=== PATIENT | male | born 1950 | race Caucasian/White ===

== ENCOUNTER → 2021-08-21 12:29 | Outpatient (CLI) | payer MEDICARE, SELFPAY ==
[2021-08-21 14:37] LABS: Absolute Lymphocyte Count 2.09 X10^3/uL (0.83-4.51); Absolute Neutrophil Count 5.7 X10^3/uL (2.0-7.7); Basophil# 0.13 X10^3/uL; Basophil% 1.5 % (0-1); Eosinophil# 0.15 X10^3/uL; Eosinophils% 1.7 % (0-5); Hemoglobin 15.2 g/dL (13.0-16.5); Lymphocyte # 2.09 X10^3/ul (0.83-4.51); Lymphocyte % 23.6 % (19-41); Mean Corpuscular Hgb 28.5 pg (27.0-32.0); Mean Corpuscular Volume 86.3 fL (80-94); Mean Platelet Vol. 11.1 fl (6.2-12.0); Monocyte# 0.79 X10^3/uL; Monocyte% 8.9 % (0-10); NRBC Flagged by Analyzer 0 % (0-5); Neutrophil # 5.66 X10^3/uL (2.7-7.7); Neutrophil % 63.7 % (47-70); Platelet Count 217 K/mm3 (150-450); RBC Distribution Width CV 13.6 % (11.6-14.6); Red Blood Count 5.33 M/mm3 (4.6-6.2); White Blood Count 8.9 K/mm3 (4.4-11.0)
[2021-08-21 14:50] LABS: Vitamin D,25 Hydroxy 36.2 ng/mL
[2021-08-21 14:55] LABS: ALB/GLOB Ratio 0.8 RATIO (0.9-2.4); AST(SGOT) 18 U/L (15-37); Alanine Aminotransfer ALT/SGPT 20 U/L (16-61); Albumin, Serum 3.5 g/dL (3.2-5.0); Alkaline Phosphatase 81 U/L (45-117); Anion Gap 5 (5-15); BUN 16 mg/dL (7-18); BUN/Creat Ratio 20.5 RATIO (10-20); Calcium,Total 9.3 mg/dL (8.5-10.1); Chloride 108 mmol/L (98-107); Cholesterol 244 mg/dL (200); Creatinine, Serum 0.78 mg/dL (0.70-1.30); EST Glomerular Filtration Rate 104 mL/min (>60); Est Glom Filt Rate - Afr Amer 125 mL/min (>60); Globulin 4.2 g/dL (2.2-4.2); Glucose 93 mg/dL (74-106); High Density Lipoprotein 44 mg/dL; PSA,Total - Annual Screen 5.18 ng/mL (0.00-4.00); Potassium 4.2 mmol/L (3.5-5.1); Protein, Total 7.7 g/dL (6.4-8.2); Sodium Level 139 mmol/L (136-145); Thyroid Stim Hormone (TSH) 1.61 uIU/mL (0.358-3.74); Triglycerides 152 mg/dL; Very Low Density Lipoprotein 30 mg/dL (5-40)
== END ==
PROVIDERS: PCP Internal Medicine; Referring Provider Internal Medicine; Visit Provider Internal Medicine
DX: E78.5 Hyperlipidemia, unspecified (principal); E55.9 Vitamin D deficiency, unspecified; E66.3 Overweight; Z12.5 Encounter for screening for malignant neoplasm of prostate
CPT/HCPCS: 36415; 80053; 80061; 82306; 84153; 84443; 85025; G0103

== ENCOUNTER 2022-03-28 12:51 | Observation (INO) | payer MEDICARE, SELFPAY ==
[2022-03-28] VITALS (16 sets, daily range): BP systolic 136–163; BP diastolic 62–101; PULSE 65–86; RESP 14–18; TEMP 36.1–36.7; O2SAT 87–94; BMI 26.5
--- NOTE | 2022-03-28 | IMM_PTH ---
PATIENT: MODESTA ARGUETA LOC: MS3 U#:[id number] AGE/SX: 71/M ROOM: [facility] [place] RE03/28/[address]: Dr. Jorge Alberto Fontana MD : 1950 BED: 1 DIS: 03/29/2022 SPEC #: [id number] RECD: 03/30/22 15:07 STATUS: CROW REDequan #: [id number] MAURY: 03/28/22 00:[address]: Jorge Alberto Fontana DEPT: IMMUNOHISTOCHEMISTRY RECD BY: Jolene Gonzalez ENTERED: 03/30/22 15:09 SP TYPE: IMMUNO OTHR DR: Dr. Lula Hammond MD Tissues: Prostate, NOS Procedures: 34BE12 (add) P40 (add) 34BE12 (initial) PHYSICIAN & INSTITUTION [place] [id number] SPECIMEN INFORMATION: Tissue Source: Prostate tissue Clinical Info: BPH with lower urinary tract symptoms Specimen Number: [id number], #1 & 7 CPT code: 42320, 61202 x3 METHODOLOGY: Deparaffinized sections of prefer/formalin-fixed tissue or PAP/DQ stained slides are incubated with monoclonal/polyclonal antibodies/oligonucleotide probes. Localization is made via biotin free immunoperoxidase method. Appropriate controls are performed and reacted as expected. Results on target cell population are indicated in the following table: RESULTS: ANTIBODY / CLONE RESULT Block 1 P40 (BC28) negative 34BE12 (34BE12) negative Block 7 P40 (BC28) negative 34BE12 (34BE12) negative These tests were developed and their performance characteristics determined by [facility]. They may not have been cleared or approved by the U.S. Food and Drug Administration. The FDA has determined that such clearance or approval is not necessary. The above immunohistochemical/dualISH markers are ordered and reviewed by the Pathologist. INTERPRETATION: Prostate, transurethral resection: Adenocarcinoma. CARMEN:eddy 04/02/2022
[2022-03-28] MEDS: Lactated Ringers 1,000 ML 15 ML IV (12:00)
--- NOTE | 2022-03-28 12:05 | EKG12_ITS ---
Test Reason : PRE OP Blood Pressure : / mmHG Vent. Rate : 063 BPM Atrial Rate : 063 BPM P-R Int : 150 ms QRS Dur : 084 ms QT Int : 388 ms P-R-T Axes : 060 000 010 degrees QTc Int : 397 ms Normal sinus rhythm Normal ECG No previous ECGs available Confirmed by JOSEPHINE LANDIN, TARUN ([id number]), photo editor PRETTY GAONA ([id number]) on 04/02/2022 10:16:48 A M Referred By: Jorge Alberto Fontana Confirmed By:RONNIE BURTON MD
[2022-03-28 12:39] LABS: Hematocrit 43.9 % (40-54); Mean Corp Hgb Conc 34.2 g/dL (32-36); Mean Corpuscular Volume 84.9 fL (80-94); Mean Platelet Vol. 9.9 fl (6.2-12.0); Platelet Count 233 K/mm3 (150-450); RBC Distribution Width CV 13.2 % (11.6-14.6); RBC Distribution Width SD 41.1 fl (35.1-43.9); Red Blood Count 5.17 M/mm3 (4.6-6.2)
--- NOTE | 2022-03-28 12:53 | HP.PCM_ITS ---
HPI - General HPI Narrative MODESTA ARGUETA, is a 71 M who presents for a TURP [facility] Medical History Ambulates with cane Back pain Fractured pelvis History of edema History of GI bleed History of pain when walking History of pneumonia Prostate disease Smoker Wears glasses Home Medications cholecalciferol (vitamin D3) [Vitamin D3] 125 mcg PO DAILY 03/22/22 [History Last Taken Unknown] red yeast rice 1,200 mg PO DAILY 03/22/22 [History Last Taken Unknown] ciprofloxacin HCl [Cipro] 500 mg PO BID #10 tab 03/28/22 [Rx Last Taken Unknown] Allergy/AdvReac Type Severity Reaction Status Date / Time No Known Allergies Allergy Verified 03/28/22 12:29 Family History Mother Diabetes Father Alzheimer disease Surgical History History of ankle surgery Hx of detached retina repair Hx of inguinal hernia repair Social History Smoking Status: Current every day smoker tobacco type: cigarettes alcohol intake: never substance use type: does not use what type of physical activity do you participate in: other details: gardening Vital Signs Vital Signs Vital Signs: 03/28/22 12:25 Temperature 97.7 F L Temperature Source Temporal Pulse Rate 74 Respiratory Rate 17 Respiratory Pattern Normal Blood Pressure 148/96 H Blood Pressure Mean 113 Blood Pressure Source Monitor Blood Pressure Position Semi-Fowlers Blood Pressure Location Right Arm Pulse Ox 93 Oxygen Delivery Method Room Air Weight Weight: 79.1 kg Body Mass Index (BMI) 26.5 Results Lab / Micro Data Result Diagrams: 03/28/22 12:23 Labs: Laboratory Results - last 24 hr 03/28/22 12:23: WBC 9.0, RBC 5.17, Hgb 15.0, Hct 43.9, MCV 84.9, MCH 29.0, MCHC 34.2, RDW Std Deviation 41.1, RDW Coeff of Michael 13.2, Plt Count 233, MPV 9.9
--- NOTE | 2022-03-28 12:54 | PCM.DC ---
Discharge Instructions Diet Discharge Diet: No restrictions Activity Discharge Activity: Return to Normal Activity and May Not Drive (while taking narcotic pain medications.) Dressing / Incision Call your doctor if you observe: Fever of 101 or Higher Follow Up Care Please Follow Up With: Jorge Alberto Fontana MD When: Call [phone] for an appointment Test Results: Test results from this visit will be discussed in further detail at your follow-up appointment, if applicable. Discharge Plan Admission Primary Reason for Your Visit: TURP Attending Provider: Jorge Alberto Fontana Primary Care Provider: Lula Hammond Instructions Patient Instructions: JUDI Home Recovery Discharge Orders/Prescriptions Prescriptions: New ciprofloxacin HCl [Cipro] 500 mg tablet 500 mg PO BID Qty: 10 RF: 0 Continued red yeast rice 600 mg Capsule 1,200 mg PO DAILY RF: 0 cholecalciferol (vitamin D3) [Vitamin D3] 125 mcg (5,000 unit) Tablet 125 mcg PO DAILY RF: 0 Discontinued tamsulosin 0.4 mg capsule 0.4 mg PO QHS RF: 0 dutasteride 0.5 mg capsule 0.5 mg PO DAILY RF: 0 Referrals / Follow Up: Jorge Alberto Fontana MD [STAFF PHYSICIAN] - Lula Hammond MD [Primary Care Provider] - Disposition Disposition (needs filled in before D/C Order can be placed): Home, Self Care
--- NOTE | 2022-03-28 12:54 | PCM.OPRPT ---
Report of Operation Date of Procedure: 03/28/22 Pre-Operative Diagnosis: bph with obstruction, atonic bladder Post-Operative Diagnosis: same Surgery/Procedure Performed:: transurethral resection of the prostate Description of Surgical Findings:: In the preoperative setting I discussed with the patient how the surgery would be done with expect afterwards. We discussed how a prostate resection is done and we discussed the risk of the surgery including, bleeding, infection, retrograde ejaculation, changes with ejaculation or intercourse,. We discussed the possibility that the resection of the prostate may not alleviate his urinary symptoms. We discussed the small risk of developing scar tissue along the urethral channel and strictures. We also discussed the chance of the prostate could grow back and he may need further surgery or treatment in the future for prostate problems. Patient was taken back to the operating room, timeout procedure was performed, he was identified and marked and placed on the operating room table. He underwent general anesthesia. He was placed in dorsolithotomy position. Penis and testicles were prepped and draped in usual sterile fashion. Went into the bladder using the visual obturator with a resectoscope. Once inside the bladder identified the right and left ureteral orifice. I then identified the prostate and the anatomy of the prostate. I marked out the area of the sphincter and the verumontanum was identified. I then proceeded with the prostate resection first resected the median lobe. And then resected the right lobe of the prostate. Then to resect the left lobe of the prostate. I then resected the apical tissue of the prostate. This was a complete resection of all obstructive tissue to improve voiding and relieve obstruction. I then made sure that there was no injury to the sphincter or the verumontanum was still intact. At the end of the resection all the chips were Ellik out of the bladder. I then identified the left and right ureteral orifice and these were confirmed to be in good position and effluxing and not injured. The resectoscope was removed, a 22 Swedish catheter was placed into the bladder on continuous irrigation. And the urine was fairly light pink color and draining normally. He was taken back to the PACU in good condition. CPT 46512 Surgeon: seng Type of Anesthesia: General Drains: 22fr [address] way fontenot Admit VTE Documentation VTE Present on Admission: No VTE Mechan Device Prophylaxis: SCD's VTE Pharm Prophylaxis ordered?: No
[2022-03-28] MEDS: Cefazolin 2 GM in 0.9% Normal Saline 100 ML IV (13:22)
--- NOTE | 2022-03-28 13:40 | PROS_PTH ---
PATIENT: MODESTA ARGUETA LOC: MS3 U#:[id number] AGE/SX: 71/M ROOM: [facility] [place] RE03/28/[address]: Dr. Jorge Alberto Fontana MD : 1950 BED: 1 DIS: 03/29/2022 SPEC #: [id number] RECD: 03/28/22 14:45 STATUS: CROW [place]OCK #: [id number] MAURY: 03/28/22 13:[address]: Jorge Alberto Fontana DEPT: SURGICAL PATHOLOGY RECD BY: Yue Duggan ENTERED: 03/29/22 07:42 SP TYPE: TURP OTHR DR: Dr. Lula Hammond MD Tissues: Prostate, NOS Procedures: Surgery Specimen Level IV HEADER OPERATION: Cysto, TUR prostate, Olympus PRE-OP DIAGNOSIS: BPH with lower urinary tract symptoms, feeling of incomplete bladder emptying TISSUE SUBMITTED: Prostate tissue MICROSCOPIC DIAGNOSIS Prostate tissue, transurethral resection: Prostatic adenocarcinoma. See cancer summary in the comment section. SJ:rg 04/01/2022 COMMENT PROSTATE CANCER (TUR) SUMMARY: Procedure - transurethral resection of prostate (TURP) Histologic type ? acinar adenocarcinoma Histologic grade ([place] Pattern) ? grade group 1 ([place] score 3+3=6) Tumor Quantitation (TUR specimens): Proportion (%) of prostatic tissue involved by tumor - <5% Periprostatic fat invasion ? not applicable Seminal vesicle invasion - not applicable Lymphvascular invasion ? not identified Perineural invasion ? not identified Additional pathologic findings ? benign prostatic hyperplasia, glandular and stromal types. Chronic inflammation and basal cell hyperplasia. Treatment effect ? no known presurgical therapy. The above summary is in compliance with [employer] [place] [employer] (CAP) Cancer Protocols Checklist and [place] Joint Committee on Cancer (AJCC), Staging Manual, 8th Ed. Immunohistochemistry ([id number]) supports the above diagnosis. Case has been reviewed in consultation with Dr. Layton who concurs with the above diagnosis. IDC:AM MICROSCOPIC DESCRIPTION Slides are reviewed. GROSS DESCRIPTION Received is one container labeled with the patient's name and designated prostate tissue. The specimen consists of multiple irregular fragments of pink-gilbert, rubbery, soft tissue that in aggregate weigh 11.4 gm and measure in aggregate 6 x 5 x 0.6 cm. Senior Telecommunications Specialist portions are submitted in ten cassettes. / AM:eddy 03/29/2022 Multiple fragments of black stones are also noted. The rest of the specimen is submitted in three more cassettes, 11-13. / SJ:eddy 03/30/2022 TC:0 CPT: 58604
--- NOTE | 2022-03-28 15:30 | EKG12_ITS ---
Test Reason : POST OP Blood Pressure : / mmHG Vent. Rate : 064 BPM Atrial Rate : 064 BPM P-R Int : 156 ms QRS Dur : 088 ms QT Int : 424 ms P-R-T Axes : 051 -07 -14 degrees QTc Int : 437 ms Normal sinus rhythm Normal ECG When compared with ECG of 28-MAR-2022 12:05, MANUAL COMPARISON REQUIRED, DATA IS UNCONFIRMED Confirmed by JOSEPHINE LANDIN, TARUN ([id number]), magazine editor PRETTY GAONA ([id number]) on 04/02/2022 10:12:58 A M Referred By: Jorge Alberto Fontana Confirmed By:RONNIE BURTON MD
--- NOTE | 2022-03-28 15:33 | SUR.PHASEI ---
WOKE PT UP TO ASSES PAIN, PT ASKS WHY HIS CHEST HURTS. ORDER PLACED FOR EKG
[2022-03-28 16:28] LABS: Troponin-I HS < 3 pg/mL (3.0-78.0)
[2022-03-28] MEDS: Ibuprofen 600 MG Tablet PO (21:54)
[2022-03-29 02:08] VITALS: BP 141/90; PULSE 75; RESP 16; TEMP 36.5; O2SAT 94
[2022-03-29] MEDS: Acetaminophen 500 MG Tablet PO (05:46)
[2022-03-29 05:59] VITALS: BP 146/97; PULSE 76; RESP 16; TEMP 36.6; O2SAT 94
[2022-03-29 07:45] VITALS: O2SAT 94
--- NOTE | 2022-03-29 07:58 | PCM.PN.GU ---
Subjective Subjective urine clear d/c fontenot d/c home Objective Data Objective Data Vital Signs: Vital Signs Temp Pulse Resp BP Pulse Ox 98 F 76 16 146/97 H 94 03/29/22 05:59 03/29/22 05:59 03/29/22 05:59 03/29/22 05:59 03/29/22 07:45 Oxygen Flow Rate (L/min) 2 Oxygen Delivery Method Nasal Cannula Weight: 79.1 kg Body Mass Index (BMI) 26.5 Intake & Output: Intake and Output for Last 24 Hours 03/27/22 03/28/22 03/29/22 23:59 23:59 23:59 Intake Total 1410 / 1410 400 / 400 Output Total 1500 / 1500 Balance -90 / -90 400 / 400 Lab / Micro Data Result Diagrams: 03/28/22 12:23 Labs: Laboratory Results - last 24 hr 03/28/22 12:23: WBC 9.0, RBC 5.17, Hgb 15.0, Hct 43.9, MCV 84.9, MCH 29.0, MCHC 34.2, RDW Std Deviation 41.1, RDW Coeff of Michael 13.2, Plt Count 233, MPV 9.9 03/28/22 16:00: Troponin I High Sens < 3 L
[2022-03-29 09:00] VITALS: BP 155/89; PULSE 68; RESP 18; TEMP 36.6; O2SAT 93
[2022-03-29] MEDS: Ibuprofen 600 MG Tablet PO (09:12)
--- NOTE | 2022-03-29 12:08 | CHAPLAIN ---
Type of Pastoral Visit _x__ Initial Visit ___ Follow-up Visit ___ On-call Visit ___ General Patient Visit ___ Spiritual Assessment ___ Family Conference ___ Bereavement ___ Rapid Response ___ Code Blue ___ Other (describe below) Pastoral Care Referral From _x__ Patient ___ Family ___ Nurse ___ Physician ___ Motor Coach Chauffeur ___ Chaplain ___ Other (describe below) Sacrament/Intervention _x__ Active listening ___ Anointing ___ Yazidism ___ Bereavement ___ Communion ___ Helen exploration ___ _x__ Life review _x__ Prayer ___ Reconciliation ___ Sacrament of Sick _x__ Supportive presence ___ Wedding ___ Other (describe below) Pastoral Comments patient is welcoming of visit and spiritual care support; pt belongs to a quaker but unable to attend recently years due to COVID and 's poor health; pt is concerned for and her future needs; pt talkative; pt expresses desire for prayer support
[2022-03-29 14:15] VITALS: BP 155/89; PULSE 68; RESP 18; TEMP 36.6; O2SAT 93
== END 2022-03-29 14:45 | disposition home or self-care (01) ==
LOC: SDC 14:56 → MS3 18:14
PROVIDERS: Anesthesiology; Admitting Provider Urology; PCP Internal Medicine; Referring Provider Urology; Visit Provider Urology
PROC: (CPT 52601; principal; 2022-03-28 13:30)
DX: N40.1 Benign prostatic hyperplasia with lower urinary tract symptoms (principal); C61 Malignant neoplasm of prostate; R33.8 Other retention of urine; Z79.899 Other long term (current) drug therapy; F17.210 Nicotine dependence, cigarettes, uncomplicated; N31.2 Flaccid neuropathic bladder, not elsewhere classified
CPT/HCPCS: 52601; 84484; 85027; 88305; 88341; 88342; 93005; 99218; J7120; G0378; J2405

== ENCOUNTER → 2022-08-07 | Outpatient (CLI) | payer MEDICARE, SELFPAY ==
[2022-08-07 16:28] LABS: PSA,Total- Diagnostic 0.42 ng/mL (0.0-4.0)
== END | disposition home or self-care (01) ==
LOC: LAB 14:40
PROVIDERS: PCP Internal Medicine; Referring Provider Registered Nurse; Visit Provider Registered Nurse
DX: C61 Malignant neoplasm of prostate (principal)
CPT/HCPCS: 36415; 84153

== ENCOUNTER → 2023-02-11 | Outpatient (CLI) | payer MEDICARE, SELFPAY ==
[2023-02-11 16:56] LABS: PSA,Total- Diagnostic 0.75 ng/mL (0.0-4.0)
== END | disposition home or self-care (01) ==
LOC: LAB 15:10
PROVIDERS: PCP Internal Medicine; Referring Provider Urology; Visit Provider Urology
DX: C61 Malignant neoplasm of prostate (principal)
CPT/HCPCS: 36415; 84153

== ENCOUNTER → 2023-02-19 | Outpatient (CLI) | payer MEDICARE, SELFPAY ==
--- NOTE | 2023-02-19 14:25 | RAD_ITS ---
STUDY: X-RAY CHEST REASON FOR EXAM: Male, 72 years old. Chest pain/pressure TECHNIQUE: PA and lateral views of the chest. COMPARISON: None. FINDINGS: Lungs are expanded with chronic interstitial changes, no superimposed acute pulmonary process. There is no demonstrated pleural abnormality. Normal size heart. Normal mediastinum and theresa. Normal visualized pulmonary arteries. Normal visualized aortic arch and descending thoracic aorta. There are diffuse degenerative changes of the visualized thoracic spine. Normal visualized ribs, clavicles, and shoulders. There is no demonstrated abnormality of the visualized soft tissue structures of the upper abdomen. RAD/Chest PA and Lateral IMPRESSION: Chronic interstitial changes in both lung corona without a superimposed acute pulmonary process Electronically Signed: Ceferino Lockhart MD at 14:35 EDT ,
== END | disposition home or self-care (01) ==
LOC: RAD 14:17
PROVIDERS: PCP Internal Medicine; Referring Provider Internal Medicine; Visit Provider Internal Medicine
DX: R06.89 Other abnormalities of breathing (principal)
CPT/HCPCS: 71046

== ENCOUNTER → 2023-03-06 | Outpatient (CLI) | payer MEDICARE, SELFPAY ==
--- NOTE | 2023-03-06 18:05 | STRESSREP_ITS ---
Stress Test Report Exercise myocardial perfusion stress test. 72-year-old man with a history of dyspnea on exertion Stress protocol: Resting EKG demonstrates sinus bradycardia with a rate of 55 bpm resting blood pressure is 160/90 mmHg. The patient exercised according to the regular Kaushik protocol for a total duration of 3 minutes and 31 seconds attaining a maximum heart rate of 118 bpm which was 80% of maximum predicted heart rate; the maximum workload was 5.8 metabolic equivalents. At rest there were no ST or T wave changes noted to suggest ischemia and at peak exercise upsloping ST changes only were noted which did not meet the criteria for ischemia. No clinical angina was noted the test was terminated due to the target heart rate being achieved /fatigue. The peak blood pressure was 210/94 mmHg. Rate-pressure product was 23,100. Myocardial perfusion protocol. 14.3 mCi of technetium 99m sestamibi was injected at rest. The patient exercised according to regular Kaushik protocol for total duration of 3 minutes and 31 seconds and at peak exercise 44.7 mCi of technetium 99m sestamibi was injected stress images were obtained stress and rest images were reconstructed in comparing the short axis vertical long and horizontal long axis. Gated images were also obtained. Perfusion SPECT analysis: Review of the stress images demonstrate normal uptake of tracer noted in all areas of the myocardium. The resting images similarly demonstrate normal uptake of tracer noted in all areas of the myocardium. No areas of reversibility are noted to suggest ischemia no previous infarct was noted. Gated SPECT analysis: The gated ejection fraction is 66%. Conclusion: Normal exercise myocardial perfusion stress test at a low workload Preserved ejection fraction.
== END | disposition home or self-care (01) ==
LOC: CVS 07:21
PROVIDERS: PCP Internal Medicine; Referring Provider Internal Medicine; Visit Provider Internal Medicine
DX: R06.09 Other forms of dyspnea (principal)
CPT/HCPCS: 78452; 93017; A9500; A4216

== ENCOUNTER 2023-09-01 12:53 | Emergency (ER) | payer MEDICARE, SELFPAY ==
[2023-09-01 12:53] VITALS: BP 210/130; PULSE 115; RESP 20; TEMP 36.4; O2SAT 93; BMI 26.9
--- NOTE | 2023-09-01 13:03 | CT_ITS ---
EXAM: CT HEAD WITHOUT INTRAVENOUS CONTRAST CLINICAL INDICATION: headache TECHNIQUE: Multiple axial images were obtained of the head without intravenous contrast. This CT exam was performed using one or more of the following dose reduction techniques: automated exposure control, adjustment of the mA and/or kV according to patient size, and/or use of iterative reconstruction technique. COMPARISON: No relevant prior studies available. FINDINGS: BRAIN AND EXTRA-AXIAL SPACES: 4.5 mm chronic-appearing right basal ganglion lacunar infarct. Areas of diminished white matter density noted within both cerebral hemispheres suggestive of chronic microvascular change. BONES/JOINTS: No suspicious lytic or blastic abnormality. SINUSES: No acute sinusitis. MASTOID AIR CELLS: Normal. Clear. CT/Brain/Head without Contrast IMPRESSION: 1. No acute intracranial abnormality. 2. Senescent changes. Electronically Signed: Adalid Lowe MD at 13:57 EDT ,
--- NOTE | 2023-09-01 13:03 | RAD_ITS ---
EXAM: XR CHEST, 1 VIEW CLINICAL INDICATION: cough -- general body aches, nausea, vomiting, migraine TECHNIQUE: Frontal view of the chest. COMPARISON: XR Chest dated 02/19/2023 FINDINGS: LUNGS AND PLEURAL SPACES: Hyperlucency within the right upper lobe again noted suggestive of underlying emphysema. HEART: Normal heart size. MEDIASTINUM: No mediastinal or hilar mass. BONES/JOINTS: No acute abnormality. RAD/Chest 1 View (Portable) IMPRESSION: No acute cardiopulmonary abnormality. COPD. Electronically Signed: Adalid Lowe MD at 13:31 EDT ,
--- NOTE | 2023-09-01 13:06 | EX.ED.DYSGE1 ---
HPI History of Present Illness Chief Complaint: Weakness Informant: patient and spouse/S.O. Onset/Context/Timing Onset: Yesterday Narrative Narrative: Patient presents with generalized body aches and headache since last evening. He states he difficulty sleeping because he cannot get comfortable. He had very mild if any cough. He does not know if he had a fever. He last took Tylenol about 11 hours ago. Patient's blood pressure and heart rate were noted to be significantly elevated in triage. He does not have a history of hypertension. Nursing staff notes that he was vomiting at the time his blood pressure was being checked. In the room at the time of my exam his blood pressure remains elevated at 186/134. [facility] Medical History Ambulates with cane Back pain Fractured pelvis History of edema History of GI bleed History of pain when walking History of pneumonia Prostate disease Smoker Wears glasses Home Medications cholecalciferol (vitamin D3) 125 mcg (5,000 unit) tablet (Vitamin D3) 125 mcg PO DAILY 03/22/22 [History Last Taken Unknown] red yeast rice 600 mg capsule 1,200 mg PO DAILY 03/22/22 [History Last Taken Unknown] Handicap placard #1 ea 02/18/23 [Rx Last Taken Unknown] nirmatrelvir 300 mg (150 mg x2)-ritonavir 100 mg tablet,dose pack (Paxlovid) See Rx Instructions PO .COMPLEX #30 tabs 09/01/23 [Rx Last Taken Unknown] Allergy/AdvReac Type Severity Reaction Status Date / Time No Known Allergies Allergy Verified 02/18/23 13:31 Family History Mother Diabetes Father Alzheimer disease Surgical History History of ankle surgery Hx of detached retina repair Hx of inguinal hernia repair Social History Smoking Status: Current every day smoker tobacco type: cigarettes alcohol intake: never substance use type: does not use what type of physical activity do you participate in: other details: gardening ROS ROS ED Constitutional Constitutional ED: Denies chills Eyes Eyes: Denies change in vision or discharge from eye(s) ENT ENT ED: Denies discharge from eye(s), rhinorrhea or sore throat Cardiovascular Cardiovascular: Denies chest pain or palpitations Respiratory/Chest Respiratory/Chest: Reports cough; Denies dyspnea Gastrointestinal Gastrointestinal: Reports nausea and vomiting; Denies diarrhea Genitourinary Genitourinary ED: Denies dysuria Musculoskeletal Musculoskeletal: Reports extremity pain and myalgias; Denies back pain Integumentary Denies Abrasions or rash Neurologic Neurologic: Reports headache(s) and weakness Psychiatric Psychiatric: Denies anxiety or depression Allergic/Immunologic Allergic/Immunologic ED: Denies lip swelling or urticaria EXAM Physical Exam Const Vital Signs: 09/01/23 12:53 09/01/23 13:15 09/01/23 13:16 Temperature 97.5 F L Temperature Source Temporal Pulse Rate 115 H 103 H Respiratory Rate 20 H 22 H Respiratory Pattern Tachypnea Blood Pressure 210/130 H 176/104 H Blood Pressure Mean 156 128 Pulse Ox 93 91 Oxygen Delivery Method Room Air 09/01/23 15:06 Temperature Temperature Source Pulse Rate 97 Respiratory Rate 22 H Respiratory Pattern Blood Pressure 169/105 H Blood Pressure Mean 126 Pulse Ox 91 Oxygen Delivery Method Room Air Positive well nourished and well developed General Appearance ED: well developed HEENT Reports normocephalic and head/scalp atraumatic Eyes PERRL and EOMs intact bilaterally Neck supple Chest Wall inspection of chest normal and palpation of chest normal Resp normal respiratory effort and clear to auscultation bilaterally Cardio regular rate and regular rhythm GI normal to inspection, nondistended, normoactive bowel sounds Palpation: soft Extremity normal to inspection Neuro oriented x3 and no sensory deficits noted Sensorium / Orientation: alert Motor Exam: strength 5/5 throughout Psych mental status grossly normal Skin no rashes or lesions noted MDM MDM MDM Narrative Medical decision making narrative: Patient placed on prenatal teacher. EKG obtained to evaluate for cardiac arrhythmia/ischemia. Chest x-ray obtained to evaluate for acute lung pathology, cardiac size, or mediastinal abnormality. Labwork obtained to evaluate for leukocytosis, anemia, and electrolyte derangement. CT scan of the head obtained given his headache and elevated blood pressure. Swab for COVID and influenza obtained. Patient given IV fluids and Zofran along with a small dose of morphine for pain control. If his blood pressure remains elevated once his pain is controlled we will initiate antihypertensives. History & Record Review Discussion w/independent historian: Patient and Significant other Lab Data Attestation: I reviewed the patient's lab results. Labs: Laboratory Results - last 24 hr 09/01/23 09/01/23 13:10 14:40 WBC 5.7 RBC 5.38 Hgb 14.8 Hct 45.7 MCV 84.9 MCH 27.5 MCHC 32.4 RDW Std Deviation 41.4 RDW Coeff of Michael 13.3 Plt Count 185 MPV 10.1 Immature Gran % (Auto) 0.300 Neut % (Auto) 79.5 H Lymph % (Auto) 5.4 L [place] % (Auto) 12.4 H Eos % (Auto) 0.7 Baso % (Auto) 1.7 H Absolute Neuts (auto) 4.5 Absolute Lymphs (auto) 0.31 L Nucleated RBC % 0 Sodium 136 Potassium 3.6 Chloride 107 Carbon Dioxide 23.0 Anion Gap 6 BUN 12 Creatinine 0.82 Estim Creat Clear Calc 75.30 Est GFR (MDRD) Af Amer 118 Est GFR (MDRD) Non-Af 98 BUN/Creatinine Ratio 14.7 Glucose 110 H Lactic Acid 0.9 Calcium 8.7 Total Bilirubin 0.50 Direct Bilirubin 0.17 AST 18 ALT 21 Alkaline Phosphatase 82 Total Protein 7.9 Albumin 3.7 Globulin 4.2 Urine Color Yellow Urine Clarity Clear Urine pH 7.0 Ur Specific [place] 1.010 Urine Protein 15 H Urine Glucose (UA) Normal Urine Ketones Negative Urine Occult Blood 150 H Urine Nitrite Negative Urine Bilirubin Negative Urine Urobilinogen Normal Ur Leukocyte Esterase Negative Urine RBC 0-5 SEEN Urine WBC 0 SEEN Ur Squamous Epith Cells 0 SEEN Urine Bacteria 0 SEEN Urine Mucus 0 SEEN Radiography Chest X-Ray - ED: 1 View, Read by ED Physician, Chronic Changes and No Infiltrates Diagnostic Testing: Clinical Impression(s) from Imaging Studies Brain CT 09/01/23 13:03 IMPRESSION: 1. No acute intracranial abnormality. 2. Senescent changes. Electronically Signed: Adalid Lowe MD at 13:57 EDT , Chest X-Ray 09/01/23 13:03 IMPRESSION: No acute cardiopulmonary abnormality. COPD. Electronically Signed: Adalid Lowe MD at 13:31 EDT , EKG Initial EKG: Attestation: I personally reviewed and interpreted this EKG as follows: Interpretation: Sinus Tachycardia (Sinus tachycardia at 103. No acute ischemia) Treatment and Re-Evaluation :: CBC was normal white count at 5.7 with a hemoglobin of 14.8. Chemistry studies are unremarkable. LFTs are normal. Lactic acid is normal at 0.9. Urinalysis reveals no evidence of infection. Ketones noted. Patient's COVID test did return positive. Portable chest x-ray per my interpretation reveals chronic changes with no focal infiltrate. Radiology interpretation is reviewed and agrees. CT scan of the head reveals chronic changes with no acute findings. Patient has a pulse ox of 91% when sitting at rest. With ambulation he drops to 88% but recovers quickly. He would like to try to go home. I will write him for Paxlovid and discussed with importance of obtaining a pulse ox meter so she can watch his oxygen levels at home. Return instructions were given. Patient's blood pressure improved to the 150-160 systolic range, however patient reports not having a history of hypertension. I encouraged him to have his blood pressure rechecked once he is over this acute illness. Discharge Plan Triage Chief Complaint: Weakness Other Complaint: Headache ED Provider: Radha Frank Dx/Rx/DC Orders Clinical Impression: COVID-19, Viral syndrome, Hypertension Instructions: Coronavirus Disease 2019 (COVID-19): Overview, Coronavirus Disease 2019 (COVID-19): Caring for Yourself or Others, ED Hypertension, To Be Confirmed, ED Viral Syndrome (Adult) Prescriptions: New Paxlovid 300 mg (150 mg x 2)-100 mg tablets,dose pack See Rx Instructions .ROUTE .COMPLEX Qty: 30 0RF Rx Instructions: take TWO 150 mg tablets of nirmatrelvir with ONE 100 mg tablet of ritonavir twice daily for 5 days No Action (DME) Handicap placard See Rx Instructions .Route .MEDSUPPLY Qty: 1 0RF Rx Instructions: 5 year RX 02/18/23-02/19/28 red yeast rice 600 mg Capsule 1,200 mg PO DAILY cholecalciferol (vitamin D3) [Vitamin D3] 125 mcg (5,000 unit) Tablet 125 mcg PO DAILY Primary Care Provider: Lula Hammond Referrals: Lula Hammnod MD [Primary Care Provider] - 1 Week Activity Restrictions/Additional Instructions: Your blood pressure is elevated today. This is likely secondary to your acute illness. Please follow-up with your primary care physician for monitoring of your blood pressure once you recover from this acute illness. Disposition Disposition: Home, Self Care
[2023-09-01] MEDS: Morphine 2 MG/ML Syringe IV (13:13)
[2023-09-01] MEDS: Ondansetron 4 MG/2 ML Vial IV (13:13)
[2023-09-01] MEDS: 0.9% Normal Saline (1000mL) 1,000 ML 150 ML IV (13:14)
[2023-09-01 13:15] VITALS: BP 176/104; PULSE 103; RESP 22; O2SAT 91
[2023-09-01 13:23] LABS: Absolute Lymphocyte Count 0.31 X10^3/uL (0.83-4.51); Absolute Neutrophil Count 4.5 X10^3/uL (2.0-7.7); Basophil% 1.7 % (0-1); Eosinophil# 0.04 X10^3/uL; Eosinophils% 0.7 % (0-5); Hematocrit 45.7 % (40-54); Hemoglobin 14.8 g/dL (13.0-16.5); Lymphocyte # 0.31 X10^3/ul (0.83-4.51); Lymphocyte % 5.4 % (19-41); Mean Corp Hgb Conc 32.4 g/dL (32-36); Mean Corpuscular Hgb 27.5 pg (27.0-32.0); Mean Corpuscular Volume 84.9 fL (80-94); Mean Platelet Vol. 10.1 fl (6.2-12.0); Monocyte# 0.71 X10^3/uL; Monocyte% 12.4 % (0-10); NRBC Flagged by Analyzer 0 % (0-5); Neutrophil # 4.54 X10^3/uL (2.7-7.7); Neutrophil % 79.5 % (47-70); POSITIVE DIFFERENTIAL YES; Platelet Count 185 K/mm3 (150-450); RBC Distribution Width CV 13.3 % (11.6-14.6); RBC Distribution Width SD 41.4 fl (35.1-43.9); Red Blood Count 5.38 M/mm3 (4.6-6.2); White Blood Count 5.7 K/mm3 (4.4-11.0)
[2023-09-01 13:24] LABS: Differential Indicated SCAN CRITERIA MET
[2023-09-01 13:40] LABS: AST(SGOT) 18 U/L (15-37); Alanine Aminotransfer ALT/SGPT 21 U/L (16-61); Albumin, Serum 3.7 g/dL (3.2-5.0); Alkaline Phosphatase 82 U/L (45-117); Anion Gap 6 (5-15); BUN 12 mg/dL (7-18); BUN/Creat Ratio 14.7 RATIO (10-20); Bilirubin, Direct 0.17 mg/dL (0.00-0.30); Calcium,Total 8.7 mg/dL (8.5-10.1); Chloride 107 mmol/L (98-107); Creatinine, Serum 0.82 mg/dL (0.70-1.30); EST Glomerular Filtration Rate 98 mL/min (>60); Est Glom Filt Rate - Afr Amer 118 mL/min (>60); Globulin 4.2 g/dL (2.2-4.2); Glucose 110 mg/dL (74-106); Potassium 3.6 mmol/L (3.5-5.1); Protein, Total 7.9 g/dL (6.4-8.2); Sodium Level 136 mmol/L (136-145)
[2023-09-01 13:54] LABS: Lactic Acid 0.9 mmol/L (0.4-1.9)
[2023-09-01 14:46] LABS: Bacteria 0 SEEN /hpf (None Seen); Mucous, Urine 0 SEEN /hpf (<or=2+); Squamous Epithelial Cells - UA 0 SEEN /hpf (0-5); White Blood Cells 0 SEEN /hpf (0-5)
[2023-09-01 14:48] LABS: Color, Urine Yellow (Yellow); Glucose, Dipstick Normal (Normal); Ketone-Dipstick Negative (Negative); Leukocyte Esterase-Dipstick Negative /ul (Negative); Nitrite-Dipstick Negative (Negative); Occult Blood-Urine 150 /ul (Negative); Protein-Dipstick 15 mg/dl (Negative); Urine Bilirubin Dipstick Negative (Negative); Urine Clarity Clear (Clear); Urine Urobilinogen Normal (Normal)
[2023-09-01 14:53] LABS: Red Blood Cells-Urine 0-5 SEEN /hpf (0-5)
[2023-09-01 15:06] VITALS: BP 169/105; PULSE 97; RESP 22; O2SAT 91
--- NOTE | 2023-09-01 15:15 | ED.RN ---
ambulated with can. legs mildly weak and slightly unsteady, sats dropped to 88% toward end of walk and pt was able to sit and recover within appx minute. rr increased however pt reports feeling ok
[2023-09-01 15:52] VITALS: BP 167/94; PULSE 100; RESP 22; O2SAT 93
== END 2023-09-01 15:53 | disposition home or self-care (01) ==
PROVIDERS: Emergency Provider Emergency Medicine; PCP Internal Medicine; Visit Provider Emergency Medicine
DX: U07.1 COVID-19 (principal); R53.1 Weakness; I10 Essential (primary) hypertension; F17.210 Nicotine dependence, cigarettes, uncomplicated; R11.2 Nausea with vomiting, unspecified
CPT/HCPCS: 70450; 71045; 80048; 80076; 81001; 83605; 85025; 87040; 87428; 93005; 96361; 96374; 96375; 99285; J7030; A4216; J2405

== ENCOUNTER → 2024-03-02 | Outpatient (CLI) | payer MEDICARE, SELFPAY ==
[2024-03-02 18:04] LABS: PSA,Total- Diagnostic 1.05 ng/mL (0.0-4.0)
== END | disposition home or self-care (01) ==
LOC: LAB 16:32
PROVIDERS: PCP Internal Medicine; Referring Provider Nurse Practitioner; Visit Provider Nurse Practitioner
DX: C61 Malignant neoplasm of prostate (principal)
CPT/HCPCS: 36415; 84153

== ENCOUNTER 2024-03-27 17:07 | Emergency (ER) | payer MEDICARE, SELFPAY ==
[2024-03-27] VITALS (9 sets, daily range): BP systolic 41–143; BP diastolic 22–107; PULSE 72–124; RESP 11–25; TEMP 36.1–36.6; O2SAT 92–94; BMI 27.5
[2024-03-27] MEDS: Succinylcholine Chloride 200 MG/10 ML SYRINGE 100 MG IV (17:13)
[2024-03-27] MEDS: Etomidate 20 MG/10 ML Vial IV (17:13)
--- NOTE | 2024-03-27 17:18 | EKG12_ITS ---
Test Reason : SOB Blood Pressure : / mmHG Vent. Rate : 095 BPM Atrial Rate : 095 BPM P-R Int : 118 ms QRS Dur : 078 ms QT Int : 304 ms P-R-T Axes : 053 -08 046 degrees QTc Int : 382 ms Sinus rhythm with frequent Premature ventricular complexes Junctional ST depression, probably normal Borderline ECG Confirmed by Jarrell Baron ([id number]), online content editor ASHWIN GLASS ([id number]) on 03/30/2024 8:50:12 AM Referred By: WESLEY Confirmed By:Jarrell Baron
--- NOTE | 2024-03-27 17:18 | CT_ITS ---
We are attempting to reach an attending provider to discuss findings. An addendum with communication details will be sent when the communication is complete. INDICATION: shock, abd pain EXAMINATION: CTA CHEST, ABDOMEN AND PELVIS WITH CONTRAST - TECHNIQUE: A CTA of the chest, abdomen, and pelvis is obtained with sagittal and coronal reconstructed MIP views. Three-dimensional surface rendered sequence of the thoracic and abdominal aorta was obtained. A radiation dose optimization technique was used for this scan. 100 mL of Isovue-370. Oral contrast: None. COMPARISON: Chest x-ray March 27, 2024. FINDINGS: CT CHEST: THORACIC AORTA: No atheromatous disease, no aneurysmal changes or dissection. ABDOMINAL AORTA thrombosed: Infrarenal abdominal aortic aneurysm measures 6.2 cm in diameter. Right retroperitoneal hematoma extends from the paraspinal/ pararenal and right pelvic sidewall and inguinal regions. No free fluid Endotracheal tube terminates above the therese. Right subclavian catheter terminates in the SVC. LUNGS: Bibasilar subsegmental atelectasis. MEDIASTINUM: The thyroid gland is normal. No mediastinal or hilar adenopathy. HEART: Heart is normal size. No pericardial effusion. Calcific coronary artery disease. CT ABDOMEN AND PELVIS: LIVER: Hepatic hypodensities measuring up to 1 cm size in the right lobe. These appear consistent with cysts. GALLBLADDER: Cholelithiasis. SPLEEN: Normal. PANCREAS: No masses or inflammation. ADRENAL GLANDS: Normal. KIDNEYS AND URETERS: Right kidney is displaced anteriorly. No hydronephrosis or nephrolithiasis. No renal masses or cysts. STOMACH: Normal. SMALL BOWEL: No abnormal distention of the small bowel. MESENTERY: No mesenteric inflammation. No ascites. COLON: Colonic diverticulosis. The colon otherwise is normal. There is a large fatty ileocecal valve. APPENDIX: The appendix is visualized and normal. IVC: Normal. RETROPERITONEUM: No retroperitoneal lymphadenopathy. PELVIC STRUCTURES: Normal bladder. SOFT TISSUES ABDOMEN: The anterior abdominal wall is normal. SOFT TISSUE CHEST: The extrathoracic soft tissues are normal. BONES: Moderate dextroconvex scoliosis lumbar spine with spondylosis and multilevel vacuum disc phenomena. Grade 1 spondylolisthesis L5-S1 and pars defects. CT/CTA Chst, Abd, Pel W and/or WO IMPRESSION: Thrombosed and ruptured 6.2 cm infrarenal abdominal aortic aneurysm with retroperitoneal hematoma. Normal contrast-enhanced CT of the chest. Normal contrast-enhanced CT of the abdomen and pelvis. Electronically Signed: Bryan Manning MD at 18:26 EDT ,
[2024-03-27 17:29] LABS: Base Excess -21 mmol/L (-2 to +2); Bicarbonate 10.9 mmol/L (22-26); Blood Gas Specimen Type ART; Mode Not entered; O2 Delivery Device Bagging; PO2 150 mmHG (75-100); SITE R Fem; SO2 98 % (95-99); Total Carbon Dioxide 12 mmol/L; pCO2 48.1 mmHg (35-45); pH 6.96 (7.35-7.45)
--- NOTE | 2024-03-27 17:30 | CPS ---
Critical ABG results relayed to Dr Hare and verified.
--- NOTE | 2024-03-27 17:31 | RAD_ITS ---
STUDY: X-RAY CHEST REASON FOR EXAM: Male, 73 years old. ETT placement TECHNIQUE: Single frontal view of the chest. COMPARISON: None. FINDINGS: ET tube terminates 3.6 cm above the therese. Right subclavian catheter terminates in the SVC. No pneumothorax. Thickening of the minor fissure. The lungs are clear and expanded. There is no demonstrated pleural abnormality. Normal size heart. Normal mediastinum and theresa. Normal visualized pulmonary arteries. Normal visualized aortic arch and descending thoracic aorta. Normal visualized thoracic spine. Normal visualized ribs, clavicles, and shoulders. There is no demonstrated abnormality of the visualized soft tissue structures of the upper abdomen. RAD/Chest 1 View (Portable) IMPRESSION: Life-support apparatus as above. pleural reaction or small amount of fluid on the right. Electronically Signed: Bryan Manning MD at 17:57 EDT ,
[2024-03-27] MEDS: fentaNYL drip 100 ML 5 MCG CONT INF (17:35)
[2024-03-27] MEDS: 0.9% Normal Saline (1000mL) 1,000 ML 999 ML IV ×2 (17:37→17:58)
[2024-03-27 17:45] LABS: Absolute Lymphocyte Count 4.32 X10^3/uL (0.83-4.51); Absolute Neutrophil Count 7.2 X10^3/uL (2.0-7.7); Basophil# 0.19 X10^3/uL; Basophil% 1.4 % (0-1); Eosinophil# 0.19 X10^3/uL; Eosinophils% 1.4 % (0-5); Hematocrit 44.3 % (40-54); Hemoglobin 14.1 g/dL (13.0-16.5); Lymphocyte # 4.32 X10^3/ul (0.83-4.51); Lymphocyte % 32.9 % (19-41); Mean Corp Hgb Conc 31.8 g/dL (32-36); Mean Corpuscular Hgb 27.9 pg (27.0-32.0); Mean Corpuscular Volume 87.7 fL (80-94); Mean Platelet Vol. 10.6 fl (6.2-12.0); Monocyte# 1.19 X10^3/uL; Monocyte% 9.1 % (0-10); NRBC Flagged by Analyzer 0 % (0-5); Neutrophil # 7.18 X10^3/uL (2.7-7.7); Neutrophil % 54.7 % (47-70); Platelet Count 229 K/mm3 (150-450); RBC Distribution Width CV 13.4 % (11.6-14.6); Red Blood Count 5.05 M/mm3 (4.6-6.2); White Blood Count 13.1 K/mm3 (4.4-11.0)
[2024-03-27 17:48] LABS: Bacteria 0 SEEN /hpf (None Seen); Mucous, Urine 0 SEEN /hpf (<or=2+)
--- NOTE | 2024-03-27 17:49 | EDS_ITS ---
HPI History of Present Illness Chief Complaint: Chest Pain Informant: patient, spouse/S.O. and EMS Narrative Narrative: 73-year-old male called EMS because he felt painful pop in his right low back while he was moving some furniture. EMS states they found him laying prone on the floor in pain, stating that he did not fall. They gave him 100 mcg of fentanyl IM because he was so much pain that they were afraid to move him and cause more. Subsequently he started vomiting, becoming lethargic, dyspneic, and tachycardic. His blood pressure was 140. They gave him Zofran 8 mg ODT and transported him lights and sirens. Very limited evaluation due to patient very lethargic, he states he feels sick to his stomach. Discussion with spouse later in the encounter, patient does not have advanced directive, was independent prior to this, had a leaky heart valve and was scheduled to get an EKG. [facility] Medical History Wears glasses Ambulates with cane Prostate disease Back pain History of GI bleed Smoker History of pain when walking History of edema History of pneumonia Fractured pelvis Home Medications ?Medication ?Instructions ?Recorded ?Last Taken ?Type cholecalciferol (vitamin D3) 125 125 mcg PO DAILY 03/22/22 Unknown History mcg (5,000 unit) tablet (Vitamin D3) red yeast rice 600 mg capsule 1,200 mg PO DAILY 03/22/22 Unknown History Handicap placard #1 ea 02/18/23 Unknown Rx Allergy/AdvReac Type Severity Reaction Status Date / Time No Known Allergies Allergy Verified 03/18/24 15:46 Family History Mother Diabetes Father Alzheimer disease Surgical History History of ankle surgery Hx of detached retina repair Hx of inguinal hernia repair Social History household members: spouse housing: house Smoking Status: Current every day smoker tobacco type: cigarettes alcohol intake: never substance use type: does not use what type of physical activity do you participate in: other details: gardening ROS ROS ED Review of Systems ROS Unobtainable: other Details: due to condition Gastrointestinal Gastrointestinal: Reports nausea EXAM Physical Exam Const Vital Signs: 03/27/24 17:07 03/27/24 17:07 03/27/24 17:15 Temperature 97 F L Temperature Source Temporal Pulse Rate 72 111 H 124 H Respiratory Rate 15 19 H 11 L Respiratory Pattern Blood Pressure 98/67 61/50 L Blood Pressure Mean 77 53 Pulse Ox Oxygen Delivery Method Room Air Room Air Fraction of Inspired Oxygen (FIO2) 03/27/24 17:15 03/27/24 17:18 03/27/24 17:21 Temperature Temperature Source Pulse Rate 112 H 120 H Respiratory Rate 16 15 Respiratory Pattern Normal Blood Pressure 118/97 H Blood Pressure Mean 104 Pulse Ox Oxygen Delivery Method Mechanical Ventilator Mechanical Ventilator Fraction of Inspired Oxygen (FIO2) 100 03/27/24 17:31 03/27/24 17:52 03/27/24 17:55 Temperature Temperature Source Pulse Rate 104 H 111 H 110 H Respiratory Rate 23 H 23 H 20 H Respiratory Pattern Blood Pressure 98/64 41/22 L 143/96 H Blood Pressure Mean 75 28 111 Pulse Ox 92 Oxygen Delivery Method Mechanical Ventilator Mechanical Ventilator Mechanical Ventilator Fraction of Inspired Oxygen (FIO2) 03/27/24 18:12 03/27/24 18:19 03/27/24 18:25 Temperature 98 F Temperature Source Pulse Rate 107 H 100 99 Respiratory Rate 23 H 25 H 23 H Respiratory Pattern Blood Pressure 120/107 H 126/26 H 81/68 L Blood Pressure Mean 111 59 72 Pulse Ox 94 Oxygen Delivery Method Fraction of Inspired Oxygen (FIO2) Positive well nourished and well developed Constitutional Narrative: Acute respiratory distress, breathing very shallow and relatively slow. Pallorous throughout. Clammy. General Appearance ED: well developed and pallor HEENT Reports moist mucous membranes normocephalic and atraumatic Eyes PERRL and EOMs intact bilaterally Neck full ROM, supple and no JVD Resp clear to auscultation bilaterally Resp Narrative: Lungs clear, poor respiratory effort with poor air movement Cardio regular rate and regular rhythm Rate: tachycardic GI GI Narrative: Very tender throughout abdomen. Normal on inspection. Pulsatile mass palpable. Auscultation: normoactive bowel sounds Palpation: soft Back/Spine Back/Spine Narrative: Normal on inspection, no ecchymosis/Sandoval Niño sign Extremity normal to inspection Extremity Narrative: Painless passive range of motion throughout all 4 extremities. General Extremety ED: Negative for edema, pulses abnormal or tenderness General Extremity: Negative for edema or pulses abnormal Neuro CN's II-XII intact bilaterally and no sensory deficits noted Neuro Narrative: Moving all 4 extremities actively Sensorium / Orientation: awake and alert Motor Exam: general weakness Skin no rashes or lesions noted and no wounds General Skin Exam: pallor; Negative for jaundice MDM MDM MDM Narrative Medical decision making narrative: Clinically upon arrival patient appears to be in shock. We elected to intubate as our initial major intervention in order to protect his airway as he was recently vomiting and is in respiratory distress. He is extremely lethargic. Intubation was uneventful see the procedure note. Also, nurses had extreme difficulty placing IVs they had a couple very small gauge IVs very peripherally, and as I was suspecting CTA he needed better access so we also placed a central line prior to getting stat potable chest x-ray, which showed good placement of both ETT and central line on my interpretation. I performed a bedside ultrasound at this time, it is consistent with a ruptured AAA, I measured the aorta approximately 6.5-7 cm in diameter and appears to be infrarenal. There is a lot of bowel gas, I had a hard time checking the Morison's and splenic pouches for fluid, but I was able to see on FAST exam that he does not have a pericardial effusion. Intact pulses both lower extremities. On the ventilator with 2 L going simultaneously, and we contacted the lab for trauma blood, blood pressure 90s, heart rate down to about 100 so we figured he was stable enough to go to CT for CTA chest, abdomen, pelvis which was done without incident/event. On my interpretation of those images it confirms a ruptured infrarenal AAA. I discussed with Nader Fairbanks with her transfer center sent me to [facility], and I simultaneously put [facility] [employer] [facility] on standby. [facility] critical care transport was not able to fly due to weather to [place] and ground MICU was going to take 2-3 hours, so we went back to [place] and the vascular surgeon there accepts the patient and we are able to fly him, ETA 5-10 minutes while I was discussing with their physician there. Also discussed with the ER physic melanie, patient to be transported there, [facility] Nader Fairbanks. I did discuss with the confirming that the patient is a full code and was fully independent prior to this. History & Record Review Discussion w/independent historian: EMS personnel and Significant other Lab Data Attestation: I reviewed the patient's lab results. Labs: Laboratory Results - last 24 hr 03/27/24 03/27/24 03/27/24 17:25 17:30 17:35 WBC 13.1 H RBC 5.05 Hgb 14.1 Hct 44.3 MCV 87.7 MCH 27.9 MCHC 31.8 L RDW Std Deviation 43.0 RDW Coeff of Michael 13.4 Plt Count 229 MPV 10.6 Immature Gran % (Auto) 0.500 Neut % (Auto) 54.7 Lymph % (Auto) 32.9 [place] % (Auto) 9.1 Eos % (Auto) 1.4 Baso % (Auto) 1.4 H Absolute Neuts (auto) 7.2 Absolute Lymphs (auto) 4.32 Nucleated RBC % 0 PT 15.5 H INR 1.2 APTT 28.3 Sodium 138 Potassium 4.1 Chloride 108 H Carbon Dioxide 25.0 Anion Gap 5 BUN 16 Creatinine 1.01 Estim Creat Clear Calc 66.04 Est GFR (MDRD) Af Amer 93 Est GFR (MDRD) Non-Af 76 BUN/Creatinine Ratio 15.8 Glucose 100 Lactic Acid 11.8 H* Calcium 9.0 Total Bilirubin 0.60 AST 24 ALT 14 L Alkaline Phosphatase 75 Total Creatine Kinase 52 Troponin I High Sens 4 Total Protein 6.9 Albumin 3.2 Globulin 3.7 Albumin/Globulin Ratio 0.9 Urine Color Yellow Urine Clarity Sl. Cloudy Urine pH 7.0 Ur Specific Colon 1.010 Urine Protein 100 H Urine Glucose (UA) Normal Urine Ketones Negative Urine Occult Blood 250 H Urine Nitrite Negative Urine Bilirubin Negative Urine Urobilinogen Normal Ur Leukocyte Esterase 25 H Urine RBC 5-10 SEEN Urine WBC 0-5 SEEN Ur Squamous Epith Cells 0-5 SEEN Amorphous Sediment 1+ PHOS Urine Bacteria 0 SEEN Urine Mucus 0 SEEN Blood Type O NEGATIVE Antibody Screen NEGATIVE Crossmatch See Detail ABG Data ABG results: ABG 03/27/24 17:26 Specimen Type ART Sample Site R Fem pH 6.96 L* Bicarbonate Actual 10.9 L Total CO2 12 Base Excess -21 L O2 Saturation 98 O2 % 100.0 ABG pCO2 48.1 H ABG pO2 150 H O2 Delivery Device Bagging Vent Mode Not entered Crit Call To/Read Back Yes Radiography Chest X-Ray - ED: 1 View, Read by ED Physician and - (No infiltrates, no CHF, possibly left upper lobe nodule, good ETT and central line placement without pneumothorax.) Diagnostic Testing: Clinical Impression(s) from Imaging Studies Chest/Abdomen/Pelvis CTA 03/27/24 17:18 IMPRESSION: Thrombosed and ruptured 6.2 cm infrarenal abdominal aortic aneurysm with retroperitoneal hematoma. Normal contrast-enhanced CT of the chest. Normal contrast-enhanced CT of the abdomen and pelvis. Electronically Signed: Bryan Manning MD at 18:26 EDT Reading Location ID and State: [place] [facility] / [place] Tel , Service support , Chest X-Ray 03/27/24 17:31 IMPRESSION: Life-support apparatus as above. pleural reaction or small amount of fluid on the right. Electronically Signed: Bryan Manning MD at 17:57 EDT Reading Location ID and State: [facility] / [place] Tel , Service support , Rhythm Strip Rhythm Strip: Sinus Tach Rate: 123 Ectopy: PVC(s) EKG Initial EKG: Attestation: I personally reviewed and interpreted this EKG as follows: Interpretation: Sinus Rhythm and No Acute Injury Pattern Prior EKG tracings: available for review Prior: Unchanged Management Discussion w/another healthcare provider: Truck Driving (2 [facility] main campus physicians, Vascular Dr. Sandoval, [facility] Nader Simpson) and Other (critical care transport) Procedures Intubations Intubation Method: orotracheal Intubation Verification: Positive color change and Bilateral breath sounds confirmed Intubation Complications: no complications (8.0 Greenlandic ETT, secured at 21 cm at the teeth. Video laryngoscopy used, with slight amount of cricoid pressure, no issues threading the tube through the mildly abducted cords. Rapid sequence intubation used using etomidate 30 mg succinylcholine 100 mg.) Procedural Sedation 1 (Initial Baseline): Consent Signed: No (Emergent procedure) Sedation medication: Etomidate Dose: 20 Route: IV Total Moderate Sedation Units: 12 Maliampati Score: Class III Comment:: Unknown ASA classification unknown medical history. 8 Greenlandic ETT placed 21 cm at the lip, 1 view chest x-ray confirms good placement of my interpretation. Other Procedures Procedure(s): Central line placement: Central line indicated due to access issues and shock. Informed consent not possible, emergent situation. Right subclavian vein site prepped and draped in a sterile fashion, full body sheet placed, found dark red nonpulsatile blood via finder needle. 16 cm triple- lumen catheter placed via modified Seldinger technique, all 3 ports judith back dark red nonpulsatile blood and flushed easily. Chlorhexidine disc placed at the site of entry against the skin, sutured into place, and dressed with a Tegaderm. 1 view chest x-ray confirms placement and no sign of pneumothorax/complication on my interpretation. Tolerated well, no complications. Critical Care Time Critical Care Time: Yes Critical care time (excluding procedures): 75-104 minutes (78 min, not including procedure time), Including time spent:, Discussing w/Patient &/or Family/Calculating Machine Mechanic, Discussing w/Consultants, Arranging Admission or Transfer and Performing Direct Patient Care at Bedside Discharge Plan Triage Chief Complaint: Chest Pain ED Provider: Frank aHre Dx/Rx/DC Orders Clinical Impression: Ruptured infrarenal abdominal aortic aneurysm (AAA), Hemorrhagic shock, Acute respiratory failure with hypoxia and hypercapnia Prescriptions: No Action (DME) Handicap placard See Rx Instructions .Route .MEDSUPPLY Qty: 1 0RF Rx Instructions: 5 year RX 02/18/23-02/19/28 red yeast rice 600 mg Capsule 1,200 mg PO DAILY cholecalciferol (vitamin D3) [Vitamin D3] 125 mcg (5,000 unit) Tablet 125 mcg PO DAILY Primary Care Provider: Lula Hammond Referrals: Lula Hammond MD [Primary Care Provider] - Print Language: French Disposition Disposition: Acute Care Hospital Discharge Location: [facility]
[2024-03-27 17:55] LABS: Color, Urine Yellow (Yellow); Glucose, Dipstick Normal (Normal); Ketone-Dipstick Negative (Negative); Leukocyte Esterase-Dipstick 25 /ul (Negative); Nitrite-Dipstick Negative (Negative); Occult Blood-Urine 250 /ul (Negative); Protein-Dipstick 100 mg/dl (Negative); Urine Bilirubin Dipstick Negative (Negative); Urine Clarity Sl. Cloudy (Clear); Urine Urobilinogen Normal (Normal)
[2024-03-27 17:55] LABS: International Normalized Ratio 1.2; Prothrombin Time (Protime)PT. 15.5 SECONDS (11.7-14.9)
[2024-03-27 17:56] LABS: Partial Thromboplast Time 28.3 Seconds (24.1-36.2)
[2024-03-27 18:04] LABS: ALB/GLOB Ratio 0.9 RATIO (0.9-2.4); AST(SGOT) 24 U/L (15-37); Alanine Aminotransfer ALT/SGPT 14 U/L (16-61); Albumin, Serum 3.2 g/dL (3.2-5.0); Alkaline Phosphatase 75 U/L (45-117); Anion Gap 5 (5-15); BUN 16 mg/dL (7-18); BUN/Creat Ratio 15.8 RATIO (10-20); CPK Total, Creatine Kinase 52 U/L (39-308); Chloride 108 mmol/L (98-107); Creatinine, Serum 1.01 mg/dL (0.70-1.30); EST Glomerular Filtration Rate 76 mL/min (>60); Est Glom Filt Rate - Afr Amer 93 mL/min (>60); Estimated Creatinine Clearance 66.04 ml/min; Globulin 3.7 g/dL (2.2-4.2); Glucose 100 mg/dL (74-106); Potassium 4.1 mmol/L (3.5-5.1); Protein, Total 6.9 g/dL (6.4-8.2); Sodium Level 138 mmol/L (136-145); Troponin-I HS 4 pg/mL (3.0-78.0)
[2024-03-27 18:09] LABS: Amorphous Sediment 1+ PHOS; Red Blood Cells-Urine 5-10 SEEN /hpf (0-5); Squamous Epithelial Cells - UA 0-5 SEEN /hpf (0-5); White Blood Cells 0-5 SEEN /hpf (0-5)
[2024-03-27] MEDS: LORazepam 2 MG/ML Syringe IV (18:10)
[2024-03-27 18:16] LABS: Lactic Acid 11.8 mmol/L (0.4-1.9)
--- NOTE | 2024-03-27 18:21 | ED.RN ---
[facility] transfer center called and ED accepting is Cristopher report # [id number]. [facility] called to transfer pt
[2024-03-27 21:38] LABS: Reflex Lactate? Y
--- NOTE | 2024-03-27 22:35 | ED.RN ---
Time 1800. 2 bags of trauma blood ordered. One bag hung with pressure bag. Vital signs were charted under the vital sign section.
== END 2024-03-27 18:30 | disposition short-term general hospital (02) ==
PROVIDERS: Emergency Provider Emergency Medicine; PCP Internal Medicine; Visit Provider Emergency Medicine
DX: J96.01 Acute respiratory failure with hypoxia (principal); R57.8 Other shock; I71.33 Infrarenal abdominal aortic aneurysm, ruptured; J96.02 Acute respiratory failure with hypercapnia; F17.210 Nicotine dependence, cigarettes, uncomplicated
CPT/HCPCS: 31500; 36556; 36600; 71045; 71275; 74174; 80053; 81001; 82550; 82803; 83605; 84484; 85025; 85610; 85730; 86644; 86850; 86900; 86901; 86920; 87040; 87086; 93005; 94002; 96361; 96374; 96375; 96376; 99252; 99285; J7030; J7040; P9016; P9040; Q9967; A4216; C1751; G0463; J0330